=== PATIENT | male | born 1980 | race Caucasian/White ===

== ENCOUNTER 2016-12-22 01:47 | Emergency (ER) | payer MEDICAID ==
[~2016-12-22] VITALS: Ht 175.3 cm; Wt 102.1 kg
[~2016-12-22 01:47] MED LIST: NORCO; SOMA
[2016-12-22 07:22] VITALS: BP 172/109
[2016-12-22] MEDS ORDERED: KETOROLAC TROMETH 60MG/2ML VIAL IM ONE (07:45)
[2016-12-22 07:55] LABS: Basophils # (auto) 0 uL; Basophils % (auto) 0.2 % (0.0-2.0); Eosinophils # (auto) 0 uL; Eosinophils % (auto) 0.3 % (0.0-7.0); Hematocrit 44.9 % (41.0-53.0); Hemoglobin 15.1 g/dL (13.5-17.5); Lymphocytes # (auto) 2.8 uL; Lymphocytes % (auto) 34.6 % (10.0-50.0); Mean Corpuscular Hgb Conc. 33.6 g/dL (32.0-36.0); Mean Corpuscular Volume 83.1 fL (80.0-100.0); Mean Platelet Volume 7.7 fL (6.9-10.8); Monocytes # (auto) 0.7 uL; Monocytes % (auto) 8.9 % (0.0-12.0); Neutrophils # (auto) 4.5 uL; Nucleated Red Blood Cells % 0.1 %; Platelet Count (auto) 273 10^3/uL (140-450); Red Cell Distribution Width 14.3 % (11.8-14.3)
[2016-12-22 08:14] LABS: Albumin 3.7 g/dL (3.4-5.0); BUN/Creatinine Ratio 10.3; Bilirubin, Total 0.2 mg/dL (0.2-1.0); Calcium 8.6 mg/dL (8.5-10.1); Potassium 3.6 mmol/L (3.5-5.1); Total Protein 8.2 g/dL (6.4-8.2)
== END 2016-12-22 09:52 | disposition home or self-care (01) ==
LOC: EDBD 01:47 → ER 01:47
DX: K76.0 Fatty (change of) liver, not elsewhere classified (principal); K80.20 Calculus of gallbladder without cholecystitis without obstruction; Z79.899 Other long term (current) drug therapy; M54.9 Dorsalgia, unspecified; G89.29 Other chronic pain; E66.9 Obesity, unspecified; Z68.33 Body mass index [BMI] 33.0-33.9, adult
CPT/HCPCS: 36415; 76705; 80053; 83690; 85025; 96372; 99285; J1885

== ENCOUNTER 2018-12-03 16:44 | Inpatient (IN) | payer MEDICAID ==
[~2018-12-03] VITALS: Ht 177.8 cm; Wt 158.8 kg
[2018-12-03] MEDS ORDERED: ASPirin 81 mg TAB PO ONE (17:15)
[2018-12-03 17:25] LABS: Basophils # (auto) 0 uL; Basophils % (auto) 0.3 % (0.0-2.0); Eosinophils # (auto) 0.1 uL; Eosinophils % (auto) 0.5 % (0.0-7.0); Hemoglobin 14.4 g/dL (13.5-17.5); Lymphocytes # (auto) 2.7 uL; Lymphocytes % (auto) 27.5 % (10.0-50.0); Mean Corpuscular Hemoglobin 27.8 pg (28.0-32.0); Mean Corpuscular Hgb Conc. 33.4 g/dL (32.0-36.0); Mean Corpuscular Volume 83.1 fL (80.0-100.0); Monocytes % (auto) 9.7 % (0.0-12.0); Neutrophils # (auto) 6.1 uL; Platelet Count (auto) 261 10^3/uL (140-450); Red Blood Cells 5.17 10^6/uL (4.5-5.90); Red Cell Distribution Width 15.2 % (11.8-14.3); White Blood Cell 9.8 10^3/uL (4.4-10.8)
[2018-12-03 17:57] LABS: Albumin 3.4 g/dL (3.4-5.0); BUN/Creatinine Ratio 14.4; Calcium 8.5 mg/dL (8.5-10.1); Magnesium 2.7 mg/dL (1.6-2.6); Potassium 3.6 mmol/L (3.5-5.1)
[2018-12-03 18:01] LABS: Bilirubin, Total 0.6 mg/dL (0.2-1.0)
[2018-12-03] MEDS ORDERED: ONDANSETRON HCL 4 MG/2 ML VIAL IV PRN (20:00)
[2018-12-03] MEDS ORDERED: MORPHINE SULF INJ 2 MG/ML SYRINGE 1ML IV PRN ×2 (20:00)
[2018-12-03] MEDS ORDERED: ACETAMINOPHEN 500 MG TAB PO PRN (20:00)
[2018-12-03] MEDS ORDERED: HYDROcodone-ACET 10/325MG TAB PO PRN (20:00)
[2018-12-03] MEDS ORDERED: NITROGLYCERIN 0.4 MG SL TAB SL PRN (20:00)
[2018-12-03] MEDS ORDERED: hydrALAZINE HCL 20 MG/ML VL IV PRN (20:00)
[2018-12-03 20:30] VITALS: BP 150/90
[2018-12-03] MEDS ORDERED: ATORVASTATIN 20 MG TAB PO SCH (22:00)
[2018-12-03] MEDS ORDERED: METOPROLOL TARTRATE 25 MG TAB PO SCH (22:00)
[2018-12-04] MEDS ORDERED: FAMOTIDINE 20 MG TAB PO SCH (10:00)
[2018-12-04] MEDS ORDERED: ASPirin-EC 81 mg tab PO SCH (10:00)
[2018-12-04] MEDS ORDERED: LISINOPRIL 10 MG TAB PO SCH (10:00)
== END 2018-12-03 23:18 | disposition left against medical advice (07) | DRG 198 ==
LOC: ER 16:56 → TELE-WESTW 16:57 → TELE 21:46
PROVIDERS: ADMIT Nurse Practitioner; ATTEND Nurse Practitioner
DX: I24.9 Acute ischemic heart disease, unspecified (principal); E83.41 Hypermagnesemia; I16.9 Hypertensive crisis, unspecified; I10 Essential (primary) hypertension; K80.20 Calculus of gallbladder without cholecystitis without obstruction; E66.9 Obesity, unspecified; G89.29 Other chronic pain; Z53.21 Procedure and treatment not carried out due to patient leaving prior to being seen by health care provider; Z68.43 Body mass index [BMI] 50.0-59.9, adult; Z79.899 Other long term (current) drug therapy
CPT/HCPCS: 36415; 71046; 76705; 80053; 83735; 83880; 84484; 85025; 85379; 86141; 93005; 93971; G0378; J2405

== ENCOUNTER 2020-09-12 23:59 | Emergency (ER) | payer MEDICAID ==
[~2020-09-12] VITALS: Ht 177.8 cm; Wt 145.1 kg
[2020-09-13 00:52] LABS: Basophils # (auto) 0 10 ^3/uL (0-0.2); Basophils % (auto) 0.5 % (0.0-2.0); Eosinophils # (auto) 0 10 ^3/uL (0-0.8); Eosinophils % (auto) 0.2 % (0.0-7.0); Hematocrit 44.3 % (41.0-53.0); Hemoglobin 15.1 g/dL (13.5-17.5); Lymphocytes # (auto) 2.6 10 ^3/uL (0.4-5.4); Lymphocytes % (auto) 31.3 % (10.0-50.0); Mean Corpuscular Hemoglobin 28.6 pg (28.0-32.0); Mean Corpuscular Hgb Conc. 34.2 g/dL (32.0-36.0); Mean Corpuscular Volume 83.6 fL (80.0-100.0); Monocytes # (auto) 0.9 10 ^3/uL (0-1.3); Monocytes % (auto) 11.2 % (0.0-12.0); Neutrophils # (auto) 4.8 10 ^3/uL (1.6-8.6); Neutrophils % (auto) 56.8 % (37.0-80.0); Nucleated Red Blood Cells % 0.1 %; Platelet Count (auto) 254 10^3/uL (140-450); Red Cell Distribution Width 14.2 % (11.8-14.3); White Blood Cell 8.4 10^3/uL (4.4-10.8)
[2020-09-13 01:10] LABS: Alanine Aminotransferase 19 U/L (16-61); Albumin 3.6 g/dL (3.4-5.0); Anion Gap 6 (5-15); Aspartate Aminotransferase 23 U/L (15-37); BUN/Creatinine Ratio 11.1; Blood Urea Nitrogen 11 mg/dL (7-18); Calcium 8.7 mg/dL (8.5-10.1); Carbon Dioxide 28 mmol/L (21-32); Chloride 104 mmol/L (98-107); GFR African American 109 mL/min; GFR Non-African American 90 mL/min; Glucose 94 mg/dL (74-106); Potassium 3.7 mmol/L (3.5-5.1); Sodium 138 mmol/L (136-145)
[2020-09-13 01:14] LABS: Alkaline Phosphatase 81 U/L (45-117); Bilirubin, Total 0.7 mg/dL (0.2-1.0)
[2020-09-13 03:24] LABS: Urine Bacteria FEW /hpf (None Seen); Urine Blood Negative /uL (Negative); Urine Mucus FEW (None Seen); Urine Specific Gravity 1.022 (1.001-1.035); Urine WBC 5 /hpf (0 - 3)
[2020-09-13 04:30] VITALS: BP 143/96
== END 2020-09-13 04:35 | disposition home or self-care (01) ==
LOC: EDBD 23:59 → ER 23:59
DX: R07.89 Other chest pain (principal); E66.8 Other obesity; I10 Essential (primary) hypertension; G89.29 Other chronic pain; M54.9 Dorsalgia, unspecified; Z68.42 Body mass index [BMI] 45.0-49.9, adult
CPT/HCPCS: 36415; 71045; 80053; 81001; 83880; 84484; 85025; 85379; 93005

== ENCOUNTER 2020-09-16 22:02 | Emergency (ER) | payer MEDICAID ==
[~2020-09-16] VITALS: Ht 175.3 cm; Wt 152.0 kg
[~2020-09-16 22:02] MED LIST changes: +HYDR-4833; -NORCO
[2020-09-16 22:46] LABS: Basophils # (auto) 0 10 ^3/uL (0-0.2); Basophils % (auto) 0.3 % (0.0-2.0); Eosinophils # (auto) 0 10 ^3/uL (0-0.8); Eosinophils % (auto) 0.3 % (0.0-7.0); Hematocrit 44.6 % (41.0-53.0); Hemoglobin 15.4 g/dL (13.5-17.5); Lymphocytes # (auto) 2.7 10 ^3/uL (0.4-5.4); Mean Corpuscular Hemoglobin 28.8 pg (28.0-32.0); Mean Corpuscular Hgb Conc. 34.4 g/dL (32.0-36.0); Mean Corpuscular Volume 83.5 fL (80.0-100.0); Monocytes # (auto) 0.9 10 ^3/uL (0-1.3); Monocytes % (auto) 11.3 % (0.0-12.0); Neutrophils # (auto) 4.6 10 ^3/uL (1.6-8.6); Neutrophils % (auto) 55.1 % (37.0-80.0); Nucleated Red Blood Cells % 0.1 %; Red Blood Cells 5.35 10^6/uL (4.5-5.90); White Blood Cell 8.3 10^3/uL (4.4-10.8)
[2020-09-16 23:02] LABS: Anion Gap 9 (5-15); Blood Urea Nitrogen 12 mg/dL (7-18); Calcium 8.7 mg/dL (8.5-10.1); Carbon Dioxide 27 mmol/L (21-32); Chloride 100 mmol/L (98-107); Glucose 81 mg/dL (74-106); Magnesium 2.4 mg/dL (1.6-2.6); Sodium 136 mmol/L (136-145)
[2020-09-16 23:04] LABS: Alanine Aminotransferase 20 U/L (16-61); Aspartate Aminotransferase 19 U/L (15-37); BUN/Creatinine Ratio 11.2; GFR African American 99 mL/min; GFR Non-African American 82 mL/min
[2020-09-16 23:09] LABS: Alkaline Phosphatase 91 U/L (45-117); Bilirubin, Total 0.6 mg/dL (0.2-1.0); Total Protein 8.4 g/dL (6.4-8.2)
[2020-09-17 00:09] LABS: Urine Bacteria NONE SEEN /hpf (None Seen); Urine Blood Negative /uL (Negative); Urine Specific Gravity 1.007 (1.001-1.035); Urine WBC 1 /hpf (0 - 3)
[2020-09-17] MEDS ORDERED: POTASSIUM CHL 20 Meq TABLET PO ONE (02:00)
[2020-09-17] MEDS: POTASSIUM CHL 20MEQ/100ML 100 ML IV SCH ×2 (02:15→04:06)
[2020-09-17] MEDS ORDERED: FAMOTIDINE 20 MG TAB PO ONE (04:15)
[2020-09-17 07:57] VITALS: BP 139/78
== END 2020-09-17 08:16 | disposition home or self-care (01) ==
LOC: ER 22:02 → EDBD 22:02 → ER 09-17 08:16
DX: R07.89 Other chest pain (principal); R51.9 Headache, unspecified; I10 Essential (primary) hypertension
CPT/HCPCS: 36415; 80053; 81001; 83735; 83880; 84484; 85025; 93005; 93971; 96360; 96361; 99285; J3480

== ENCOUNTER 2021-03-15 18:35 | Emergency (ER) | payer MEDICAID ==
[~2021-03-15] VITALS: Ht 172.7 cm; Wt 136.1 kg
[2021-03-15] MEDS ORDERED: traMADol HCL 50 MG TAB PO ONE (19:15)
[2021-03-15 20:24] LABS: Basophils # (auto) 0 10 ^3/uL (0-0.2); Basophils % (auto) 0.5 % (0.0-2.0); Eosinophils # (auto) 0 10 ^3/uL (0-0.8); Hematocrit 48.2 % (41.0-53.0); Hemoglobin 16.1 g/dL (13.5-17.5); Lymphocytes # (auto) 1.8 10 ^3/uL (0.4-5.4); Lymphocytes % (auto) 20.6 % (10.0-50.0); Mean Corpuscular Hemoglobin 27.6 pg (28.0-32.0); Mean Corpuscular Hgb Conc. 33.3 g/dL (32.0-36.0); Monocytes # (auto) 0.6 10 ^3/uL (0-1.3); Monocytes % (auto) 6.3 % (0.0-12.0); Neutrophils # (auto) 6.5 10 ^3/uL (1.6-8.6); Neutrophils % (auto) 72.6 % (37.0-80.0); Nucleated Red Blood Cells % 0.1 %; Red Blood Cells 5.81 10^6/uL (4.5-5.90); Red Cell Distribution Width 13.3 % (11.8-14.3)
[2021-03-15 20:43] LABS: Albumin 4.2 g/dL (3.4-5.0); Calcium 9.5 mg/dL (8.5-10.1); Potassium 3.3 mmol/L (3.5-5.1)
[2021-03-15 20:48] LABS: BUN/Creatinine Ratio 6.8; Bilirubin, Total 0.4 mg/dL (0.2-1.0); Total Protein 9.2 g/dL (6.4-8.2)
[2021-03-15] MEDS ORDERED: HYDROcodone-ACET 7.5/325MG TAB PO ONE (22:45)
[2021-03-15 23:02] VITALS: BP 150/83
== END 2021-03-15 23:03 | disposition home or self-care (01) ==
LOC: EDBD 18:35 → ER 18:38
DX: S09.90XA Unspecified injury of head, initial encounter (principal); R07.89 Other chest pain; I10 Essential (primary) hypertension; Z79.899 Other long term (current) drug therapy; Y04.2XXA Assault by strike against or bumped into by another person, initial encounter; Y93.89 Activity, other specified; Y92.89 Other specified places as the place of occurrence of the external cause; Y99.8 Other external cause status
CPT/HCPCS: 36415; 70450; 80053; 84484; 85025; 93005